=== PATIENT | female | born 2000 | race Caucasian/White ===

== ENCOUNTER 2023-07-26 07:59 | Emergency (ER) | payer OTHER, BC ==
[~2023-07-26] VITALS: Ht 180.3 cm; Wt 81.7 kg
[2023-07-26 09:16] VITALS: BP 140/76
== END 2023-07-26 09:18 | disposition home or self-care (01) ==
LOC: ED 07:59
DX: T59.811A Toxic effect of smoke, accidental (unintentional), initial encounter (principal)
CPT/HCPCS: 94640; 94664; 99283